=== PATIENT | male | born 1985 | race African-American/Black ===

== ENCOUNTER 2016-10-05 17:55 | Emergency (ER) | payer MEDICARE, MEDICAID ==
[~2016-10-05] VITALS: Ht 180.3 cm; Wt 62.8 kg
[2016-10-05 18:06] VITALS: BP 139/85
== END 2016-10-05 19:40 | disposition home or self-care (01) ==
LOC: ED 19:34
DX: L29.9 Pruritus, unspecified (principal)
CPT/HCPCS: 99281

== ENCOUNTER 2017-03-09 08:22 | Emergency (ER) | payer MEDICARE, MEDICAID ==
[~2017-03-09] VITALS: Ht 180.3 cm; Wt 76.8 kg
[2017-03-09] MEDS ORDERED: KETOROLAC 30 MG/1 ML ONE (09:11)
[2017-03-09] MEDS ORDERED: KETOROLAC 30 MG/1 ML IM ONE (09:30)
[2017-03-09 10:14] VITALS: BP 137/89
== END 2017-03-09 10:49 | disposition home or self-care (01) ==
LOC: ED 09:11
DX: M94.0 Chondrocostal junction syndrome [Tietze] (principal); F17.210 Nicotine dependence, cigarettes, uncomplicated
CPT/HCPCS: 71045; 96372; 99283; J1885

== ENCOUNTER 2017-04-24 12:32 | Emergency (ER) | payer MEDICARE, MEDICAID ==
[~2017-04-24] VITALS: Ht 180.3 cm; Wt 79.7 kg
[2017-04-24 12:39] VITALS: BP 162/85
== END 2017-04-24 13:22 | disposition home or self-care (01) ==
LOC: ED 13:00
DX: T78.40XA Allergy, unspecified, initial encounter (principal); X58.XXXA Exposure to other specified factors, initial encounter; Z88.0 Allergy status to penicillin
CPT/HCPCS: 99281

== ENCOUNTER 2017-11-06 17:19 | Emergency (ER) | payer MEDICARE, MEDICAID ==
[~2017-11-06] VITALS: Ht 180.3 cm; Wt 71.2 kg
[2017-11-06 17:26] VITALS: BP 128/77
== END 2017-11-06 18:13 | disposition home or self-care (01) ==
LOC: ED 17:40
DX: B37.2 Candidiasis of skin and nail (principal); F17.200 Nicotine dependence, unspecified, uncomplicated
CPT/HCPCS: 99282

== ENCOUNTER 2017-11-11 08:39 | Emergency (ER) | payer MEDICARE, MEDICAID ==
[~2017-11-11] VITALS: Ht 180.3 cm; Wt 72.2 kg
[2017-11-11 09:27] VITALS: BP 152/68
== END 2017-11-11 09:44 | disposition home or self-care (01) ==
LOC: ED 09:30
DX: B35.6 Tinea cruris (principal)
CPT/HCPCS: 99283

== ENCOUNTER 2017-12-10 15:17 | Emergency (ER) | payer MEDICAID, MEDICARE, OTHER ==
[~2017-12-10] VITALS: Ht 185.4 cm; Wt 90.0 kg
[2017-12-10 15:45] LABS: BASOPHILS # (AUTO) 0.07 x10^3/uL (0-0.1); BASOPHILS % (AUTO) 1 % (0-1); EOSINOPHILS # (AUTO) 0.01 x10^3/uL (0-0.4); EOSINOPHILS % (AUTO) 0 % (1-7); LYMPHOCYTES % (AUTO) 13 % (22-44); MD NO; MEAN CORPUSCULAR HEMOGLOBIN 30.9 pg (27.5-34.5); MEAN CORPUSCULAR VOLUME 93.8 fL (81-97); MONOCYTES # (AUTO) 1.24 x10^3/uL (0.2-0.8); MONOCYTES % (AUTO) 10 % (2-9); NEUTROPHILS # (AUTO) 9.16 x10^3/uL (1.8-6.8); NEUTROPHILS % (AUTO) 76 % (42-75); PLATELET COUNT 316 x10^3/uL (130-400); RED CELL DISTRIBUTION WIDTH 13.6 % (9.4-14.8)
[2017-12-10 15:57] LABS: ALBUMIN 4.2 g/dL (3.4-5.0); ANION GAP 12 mmol/L (5-15); CALCIUM 9.7 mg/dL (8.5-10.1); CHLORIDE 107 mmol/L (98-107); CREATININE 0.97 mg/dL (0.7-1.3)
[2017-12-10 16:08] LABS: ACETAMINOPHEN < 2 mcg/mL (10-30); SALICYLATE LEVEL < 1.7 mg/dL (2.8-20.0)
[2017-12-10 16:40] LABS: AMPHETAMINE SCREEN, URINE Positive (Negative); BARBITURATE SCREEN, URINE Negative (Negative); BENZODIAZEPINE SCREEN, URINE Negative (Negative); CANNABINOID SCREEN, URINE Negative (Negative); COCAINE SCREEN, URINE Negative (Negative); METHADONE SCREEN, URINE Negative (Negative); OPIATE SCREEN, URINE Negative (Negative)
[2017-12-10 18:12] VITALS: BP 152/80
== END 2017-12-10 18:14 | disposition home or self-care (01) ==
LOC: ED 18:05
DX: F15.159 Other stimulant abuse with stimulant-induced psychotic disorder, unspecified (principal); F24 Shared psychotic disorder; Z59.0 Homelessness; Z72.9 Problem related to lifestyle, unspecified
CPT/HCPCS: 36415; 80048; 80307; 80329; 82040; 84443; 85025; 99284; G0480

== ENCOUNTER 2018-09-23 19:37 | Emergency (ER) | payer MEDICAID, MEDICARE ==
[~2018-09-23] VITALS: Ht 180.3 cm; Wt 75.0 kg
[2018-09-23 21:22] VITALS: BP 121/78
== END 2018-09-23 21:25 | disposition home or self-care (01) ==
LOC: ED 20:43
DX: F15.10 Other stimulant abuse, uncomplicated (principal); F10.10 Alcohol abuse, uncomplicated; R51 Headache; F17.200 Nicotine dependence, unspecified, uncomplicated; Z72.9 Problem related to lifestyle, unspecified; Z90.49 Acquired absence of other specified parts of digestive tract; Y90.9 Presence of alcohol in blood, level not specified
CPT/HCPCS: 36415; 71045; 80053; 84484; 85025; 85651; 86140; 87040; 93005; 99284

== ENCOUNTER 2018-09-27 12:18 | Emergency (ER) | payer MEDICARE ==
[~2018-09-27] VITALS: Ht 180.3 cm; Wt 81.8 kg
[2018-09-27 12:19] VITALS: BP 136/85
== END 2018-09-27 17:56 | disposition home or self-care (01) ==
LOC: ED 17:02
DX: F20.89 Other schizophrenia (principal); Z72.9 Problem related to lifestyle, unspecified; F15.10 Other stimulant abuse, uncomplicated
CPT/HCPCS: 36415; 80048; 80307; 82040; 85025; 99284

== ENCOUNTER 2020-05-27 15:40 | Emergency (ER) | payer MEDICARE ==
[~2020-05-27] VITALS: Ht 180.3 cm; Wt 76.5 kg
[~2020-05-27 15:40] MED LIST: HYDR25CA94 PO; RISP2TAB35 PO
[2020-05-27 15:54] VITALS: BP 125/83
--- NOTE | 2020-05-27 16:16 | NUR ---
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
[2020-05-27 16:37] LABS: BASOPHILS % (AUTO) 1 % (0-1); EOSINOPHILS % (AUTO) 0 % (1-7); LYMPHOCYTES % (AUTO) 6 % (22-44); MEAN CORPUSCULAR HEMOGLOBIN 30.5 pg (27.5-34.5); MEAN CORPUSCULAR HGB CONC 32.6 g/dL (33.2-36.2); MEAN PLATELET VOLUME 7.3 fL (7.4-10.4); MONOCYTES % (AUTO) 7 % (2-9); NEUTROPHILS % (AUTO) 85 % (42-75); PLATELET COUNT 312 x10^3/uL (130-400); RED BLOOD COUNT 4.61 x10^6/uL (4.38-5.82); RED CELL DISTRIBUTION WIDTH 13.3 % (9.4-14.8)
[2020-05-27] MEDS ORDERED: ACETAMINOPHEN 500 MG TABLET ONE (16:44)
--- NOTE | 2020-05-27 16:45 | NUR ---
FIRST ENCOUNTER: PT PRESENTED TO ED D/T [facility] X3 DAYS "ON AND OFF". PT CURRENTLY HOMELESS.
[2020-05-27 16:46] LABS: ALANINE AMINOTRANSFERASE 93 U/L (12-78); ALBUMIN 3.8 g/dL (3.4-5.0); ANION GAP 7 mmol/L (5-15); CALCIUM 8.9 mg/dL (8.5-10.1); CHLORIDE 102 mmol/L (98-107); CREATININE 1.05 mg/dL (0.7-1.3)
[2020-05-27 16:48] LABS: ALKALINE PHOSPHATASE 74 U/L (45-117); BILIRUBIN,TOTAL 0.6 mg/dL (0.2-1.0); TOTAL PROTEIN 7.7 g/dL (6.4-8.2)
--- NOTE | 2020-05-27 16:48 | NUR ---
PT MEDICATED PER EMAR.
--- NOTE | 2020-05-27 16:53 | NUR ---
PT PROVIDED WITH FOOD PER REQUEST.
[2020-05-27] MEDS ORDERED: ACETAMINOPHEN 500 MG TABLET PO ONE (17:00)
--- NOTE | 2020-05-27 17:17 | NUR ---
PT DISCHARGED HOME IN A STABLE CONDITION. DC INSTRUCTIONS DISCUSSED WITH PT. PT VERBALIZED UNDERSTANDING. PT AMBULATED TO DC DESK WITH RN WITH A STEADY GAIT.
== END 2020-05-27 17:20 | disposition home or self-care (01) ==
LOC: ED 16:45
DX: R51.9 Headache, unspecified (principal); Z90.89 Acquired absence of other organs
CPT/HCPCS: 36415; 80053; 85025; 99283